=== PATIENT | male | born 1965 | race Caucasian/White ===

== ENCOUNTER 2022-08-28 13:03 | Emergency (ER) | payer OTHER, SELFPAY ==
[2022-08-28] VITALS (33 sets, daily range): BP systolic 140–171; BP diastolic 83–112; PULSE 68–88; RESP 19; TEMP 36.3; O2SAT 94–99; BMI 29.4
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
--- NOTE | 2022-08-28 13:39 | CRLHL7_ITS ---
For Patients: As a result of the Century Cures Act, medical imaging exams and procedure reports are released immediately into your electronic medical record. You may view this report before your referring provider. If you have questions, please contact your health care provider. INDICATION: Chest pain TECHNIQUE: Chest 1 view. COMPARISON: None FINDINGS: Cardiovascular and mediastinum: Heart size and vasculature are normal in caliber and appearance. Mediastinum is within normal limits. Lungs and pleural space: Lungs are clear. No sign of infiltrate or mass. No sign of pleural effusion. No pneumothorax. Bones and soft tissues: No significant findings. IMPRESSION: Unremarkable chest. Dictated by Titi Aj MD @ 08/28/2022 2:46:27 PM (Electronically Signed)
[2022-08-28 13:59] LABS: Basophils Percent Auto 0.2 % (0.0-3.0); Eosinophils Percent Auto 0.2 % (0.0-7.0); Hematocrit 48.3 % (37.0-53.0); Hemoglobin* 14.5 gm/dL (13.5-17.5); Immature Granulocytes Pct Auto 0.3 %; Lymphocytes Percent Auto 4.1 % (20-44); Mean Corpuscular HGB Conc 30 gm/dL (32-36); Mean Corpuscular Hemoglobin 22 pg (26-34); Mean Corpuscular Volume 72 fL (80-100); Monocytes Percent Auto 0.8 % (0.0-11.0); Neutrophils Percent Auto 94.4 % (42.0-72.0); Platelet Count* 535 K/uL (140-440); RDW Coefficient of Variation % 24.3 % (11.5-15.5); Red Blood Count 6.68 m/uL (4.30-5.90); White Blood Count* 12.09 K/uL (4.50-11.00)
[2022-08-28 14:01] LABS: HCO3 VBG 22 mmol/L (21-28); Lactate* 2.7 mmol/L (0.5-1.9); PCO2 VBG 32 mmHG (40-50); PO2 VBG 79.6 mmHG (25-47); pH VBG 7.444 (7.32-7.43)
[2022-08-28 14:06] LABS: Slide Review Reflex Yes
[2022-08-28] MEDS: ASPIRIN 81 MG TAB.CHEW 324 MG PO (14:16)
[2022-08-28] MEDS: NITROGLYCERIN 0.4 MG TAB.SUBL SUBLINGUAL (14:16)
[2022-08-28 14:18] LABS: Albumin* 4.1 g/dL (3.3-5.0); Chloride* 101 mmol/L (96-114); Potassium* 3.7 mmol/L (3.6-5.1); Sodium* 135 mmol/L (135-149)
[2022-08-28 14:20] LABS: Bilirubin Total* 0.6 mg/dL (0.1-1.5); Carbon Dioxide* 20 mmol/L (20-32); Est. Creatinine Clearance* 89.46; Estimated Glomerular Filt Rate 88 ml/min
[2022-08-28 14:21] LABS: Alanine Aminotransferase* 33 U/L (4-50); Alkaline Phosphatase* 70 U/L (40-150); Aspartate Amino Transferase* 38 U/L (12-35); Blood Urea Nitrogen* 13 mg/dL (7-30); Total Protein* 6.9 g/dL (6.0-8.3)
[2022-08-28 14:22] LABS: Calcium* 9.2 mg/dL (8.4-10.6); Glucose* 167 mg/dL (60-115)
[2022-08-28 14:30] LABS: Slide Review Acceptable Review (Acceptable)
--- NOTE | 2022-08-28 14:38 | ED.NURSE ---
Chest pain improved from 3/10 to 2/10 after administration of Nitro sublingual. BP decreased slightly after administration as well. Will continue to monitor.
[2022-08-28 14:39] LABS: C Reactive Protein* < 0.5 mg/dL (0.5-1.0); NT Pro B Type NatriureticPept* 146 pg/mL; Troponin I* 0.14 ng/mL (0.01-0.04)
[2022-08-28 14:40] LABS: D Dimer Quantitative* < 0.27 ug/ml (0.00-0.50)
--- NOTE | 2022-08-28 14:40 | ED.NURSE ---
Call from lab received with critical Trop I of 0.14. Dr. Brooks notified @ [phone].
[2022-08-28 15:26] LABS: INR 1.05 (0.91-1.10); Prothrombin Time 14.4 Seconds
[2022-08-28 15:27] LABS: Partial Thromboplastin Time* 36 Seconds (23-33)
[2022-08-28] MEDS: HEPARIN 25,000 UNIT/500 ML BAG 20 UNIT IV (15:43)
[2022-08-28] MEDS: HEPARIN 5,000 UNIT/0.5 ML INJ 4000 UNIT IVP (15:44)
--- NOTE | 2022-08-28 15:56 | ED.NURSE ---
Heparin drip started at 1544. Loading dose of 4,000 u given via IV push. Maintenance dose currently running at 1,000 u per hour or 20 mL per hour. Pt educated on signs of bleeding to watch for including new bleeding or bruising, blood coming out of orifices, and blood in urine or stool. Pt verbalized understanding and will report any signs of new bleeding to nursing staff.
[2022-08-28 16:47] LABS: Troponin I* 0.67 ng/mL (0.01-0.04)
== END 2022-08-28 17:50 | disposition short-term general hospital (02) ==
PROVIDERS: Emergency Provider Family Medicine
DX: I21.4 Non-ST elevation (NSTEMI) myocardial infarction (principal)
CPT/HCPCS: 36415; 71045; 80053; 82803; 83605; 83880; 84484; 85025; 85379; 85610; 85730; 86140; 93005; 94761; 99285; 99291; A9270; J1644

== ENCOUNTER 2022-08-28 17:45 | Outpatient (CLI) | payer OTHER, SELFPAY | END 2022-08-28 17:46 | disposition home or self-care (01) | LOC: AMB 08-29 05:38 | PROVIDERS: Visit Provider Family Medicine | DX: R07.89 Other chest pain (principal) | CPT/HCPCS: A0425; A0426; A0428 ==